=== PATIENT | male | born 1950 | race Two or more races ===

== ENCOUNTER 2019-07-17 15:10 | Emergency (ER) | payer OTHER ==
[~2019-07-17] VITALS: Ht 172.7 cm; Wt 76.2 kg
--- NOTE | 2019-07-17 15:20 | NUR ---
SENT [facility] PMD, C/O LEFT SIDED CHEST PAIN SINCE TUESDAY. PATIENT A/OX4, BREATHING EVEN AND UNLABORED, NO SOB NOTED, KEPT COMFORTABLE, CHANGED INTO GOWN, ATTACHED TO THE [employer] INTERN. EKG ORDERED.
--- NOTE | 2019-07-17 15:30 | NUR ---
dr. garcía at bedside for eval.
[2019-07-17 15:42] LABS: BASOPHILS # (AUTO) 0.1 /CMM (0.0-0.2); BASOPHILS % (AUTO) 1.2 % (0.0-2.0); EOSINOPHILS % (AUTO) 1.9 % (0.0-6.0); HEMATOCRIT 44 % (39-51); HEMOGLOBIN 15.4 g/dL (13.5-17.5); LYMPHOCYTES # (AUTO) 3.5 /CMM (0.8-4.8); LYMPHOCYTES % (AUTO) 34.3 % (20.0-44.0); MEAN CORPUSCULAR HGB CONC 35 g/dl (31.0-36.0); MEAN CORPUSCULAR VOLUME 92 fL (80-96); MONOCYTES # (AUTO) 0.9 /CMM (0.1-1.30); MONOCYTES % (AUTO) 8.8 % (2.0-12.0); NEUTROPHILS # (AUTO) 5.6 /CMM (1.8-8.9); NEUTROPHILS % (AUTO) 53.8 % (43.0-81.0); PLATELET COUNT (AUTO) 226 /CMM (150-450); RED BLOOD CELL COUNT(AUTO) 4.79 MIL/uL (4.5-6.0); WHITE BLOOD COUNT (AUTO) 10.3 K/uL (4.3-11.0)
[2019-07-17 15:43] LABS: CALCIUM, SERUM 9.3 mg/dL (8.5-10.1); CARBON DIOXIDE 29 mmol/L (21-32); CHLORIDE 107 mmol/L (98-107); CREATININE 0.8 mg/dL (0.6-1.3); GLUCOSE 98 mg/dL (74-106); POTASSIUM 3.9 mmol/L (3.5-5.1); SODIUM SERUM 144 mmol/L (136-145); UREA NITROGEN, BLOOD 8 mg/dL (7-18)
--- NOTE | 2019-07-17 16:30 | NUR ---
GAVE MOVESHEET TO ADMITTING
[2019-07-17] MEDS ORDERED: OMEP40CA13 PO (16:35)
[2019-07-17] MEDS ORDERED: CYAN100010 PO (16:35)
[2019-07-17] MEDS ORDERED: GABA600T12 PO (16:35)
[2019-07-17] MEDS ORDERED: SERT25TA5 PO (16:35)
[2019-07-17] MEDS ORDERED: ATOR40TA PO (16:35)
[2019-07-17] MEDS ORDERED: HYDR-3895 PO (16:35)
--- NOTE | 2019-07-17 17:06 | NUR ---
PATIENT DENIES PAIN AT THIS TIME. RESTING IN STABLE CONDITION.
[2019-07-17] MEDS ORDERED: ASPIRIN 325 MG TABLET PO ONE (17:30)
[2019-07-17] MEDS ORDERED: ASPIRIN 325 MG TABLET ONE (17:33)
--- NOTE | 2019-07-17 17:37 | NUR ---
PER DR VEE, PT WILL BE TRANSFERED
--- NOTE | 2019-07-17 17:37 | NUR ---
PT [facility]; WILL CALL BACK WITH ER INFORMATION
--- NOTE | 2019-07-17 17:55 | NUR ---
PER CM AWAITING ROOM ASSIGNMENT FROM [facility], WILL CALL BACK WITH UPDATES
[2019-07-17 18:58] VITALS: BP 138/84
--- NOTE | 2019-07-17 18:58 | NUR ---
IV removed. Catheter intact and site benign. Pressure and 4x4 applied to site. No bleeding noted. Patient does not wish to proceed with medical care recommended by Dr. Cross. Patient given information related to possible complications, up to and including , which could occur as a result of leaving the hospital at this time. Patient verbalizes understanding of risks involved due to leaving against medical advice. Patient has signed AMA form.
== END 2019-07-17 18:59 | disposition left against medical advice (07) ==
LOC: ER 15:11
DX: R07.89 Other chest pain (principal); R06.02 Shortness of breath; R42 Dizziness and giddiness; R11.2 Nausea with vomiting, unspecified; E78.00 Pure hypercholesterolemia, unspecified; R00.1 Bradycardia, unspecified; Z79.899 Other long term (current) drug therapy
CPT/HCPCS: 36415; 71045-TC; 80048-TC; 84484-TC; 85025-TC

== ENCOUNTER 2023-01-08 15:45 | Emergency (ER) | payer OTHER ==
[~2023-01-08] VITALS: Ht 172.7 cm; Wt 73.9 kg
[~2023-01-08 15:45] MED LIST: ATOR40TA PO; CYAN100010 PO; GABA600T12 PO; HYDR-3895 PO; OMEP40CA21 PO; SERT25TA5 PO
--- NOTE | 2023-01-08 16:08 | NUR ---
PT PUT ON BED AOX4. NOT IN CR DISTRESS. AMBULATORY LYING ON BED COMFORTABLY. WAITING FOR DR BRODY ORDERS.
--- NOTE | 2023-01-08 16:10 | NUR ---
C/O LEFT EAR PAIN WITH "YELLOW DISCHARGE X 8 DAYS.
[2023-01-08] MEDS ORDERED: CIPR7.5D9 LEFT EAR (17:37)
[2023-01-08 17:42] VITALS: BP 140/80
== END 2023-01-08 17:43 | disposition home or self-care (01) ==
LOC: ER 15:56
DX: H60.92 Unspecified otitis externa, left ear (principal); E78.00 Pure hypercholesterolemia, unspecified; E11.9 Type 2 diabetes mellitus without complications; Z79.2 Long term (current) use of antibiotics; Z79.899 Other long term (current) drug therapy